=== PATIENT | female | born 1955 ===

== ENCOUNTER 2019-11-24 10:40 | Outpatient (CLI) | payer OTHER ==
[2019-11-27] MEDS ORDERED: TOPROL XL25 M1 PO (13:06)
[2019-11-27] MEDS ORDERED: ZETIA10 MG PO (13:07)
[2019-11-27] MEDS ORDERED: MULTIVITAMINS1 EAC9 PO (13:08)
[2019-11-27] MEDS ORDERED: PROLIA (13:08)
[2019-11-27] MEDS ORDERED: VITAMIN D PO (13:09)
[2019-11-27] MEDS ORDERED: OMEGA PO (13:09)
== END 2019-11-24 10:49 | disposition home or self-care (01) ==
LOC: LAB 10:40
PROVIDERS: ATTEND Obstetrics & Gynecology
DX: Z20.828 Contact with and (suspected) exposure to other viral communicable diseases (principal); Z03.818 Encounter for observation for suspected exposure to other biological agents ruled out; I10 Essential (primary) hypertension; M81.0 Age-related osteoporosis without current pathological fracture; R92.0 Mammographic microcalcification found on diagnostic imaging of breast; N95.0 Postmenopausal bleeding; K76.0 Fatty (change of) liver, not elsewhere classified

== ENCOUNTER 2019-11-30 07:00 | Day surgery (SDC) | payer OTHER ==
[~2019-11-30 07:00] MED LIST: MULTIVITAMINS1 EAC9 PO; OMEGA PO; PROLIA; TOPROL XL25 M1 PO; VITAMIN D PO; ZETIA10 MG PO
== END 2019-11-30 21:20 | disposition home or self-care (01) ==
LOC: CIR.AMB 07:00 → ADM 09:15 → CIR.AMB 09:15
PROVIDERS: ATTEND Obstetrics & Gynecology
DX: N95.0 Postmenopausal bleeding (principal)

== ENCOUNTER → 2025-03-19 07:00 | Outpatient (CLI) | payer OTHER ==
[~2025-03-19] VITALS: Ht 167.6 cm; Wt 74.8 kg
== END | disposition home or self-care (01) ==
LOC: LAB 07:00 → ADM 10:15 → OB/GYN 03-29 07:00 → EDSTATUS 03-29 10:15 → CIR.AMB 03-29 10:15 → OB/GYN 03-29 10:15
PROVIDERS: ATTEND Obstetrics & Gynecology
DX: N81.2 Incomplete uterovaginal prolapse (principal); N81.11 Cystocele, midline